=== PATIENT | female | born 1995 | race Two or more races ===

== ENCOUNTER 2023-07-25 10:46 | Outpatient (OUT) | payer OTHER, SELFPAY ==
--- NOTE | 2023-07-25 10:53 | ECG_ITS ---
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
[2023-07-25 11:53] LABS: Basophils Percent Auto 0.5 % (0.2-2.0); Eosinophils Absolute Auto 0.2 10^3/uL (0.0-0.7); Eosinophils Percent Auto 2.1 % (0.9-7.0); Hematocrit 39.1 % (36.0-48.0); Hemoglobin 12.8 g/dL (12.0-16.0); Immature Granulocytes Abs Auto 0.04 10^3/uL (0.00-0.03); Immature Granulocytes Pct Auto 0.5 % (0.0-0.5); Lymphocytes Absolute Auto 2.9 10^3/uL (1.2-3.8); Lymphocytes Percent Auto 37.9 % (20.5-60.0); Mean Corpuscular HGB Conc 32.7 g/dL (29.9-35.2); Mean Corpuscular Hemoglobin 30.3 pg (26.7-34.0); Mean Corpuscular Volume 92.7 fL (81.0-99.0); Monocytes Absolute Auto 0.6 10^3/uL (0.3-0.8); Monocytes Percent Auto 7.4 % (1.7-12.0); Neutrophils Percent Auto 51.6 % (43.0-75.0); Platelet Count 310 10^3/uL (150-450); Red Blood Count 4.22 10^6/uL (4.20-5.40); Red Cell Distribution Width 11.9 % (11.0-15.0); White Blood Count 7.7 10^3/uL (4.0-11.0)
[2023-07-25 12:47] LABS: BUN Creatinine Ratio 12.5; Calcium 9.2 mg/dL (8.5-10.1); Carbon Dioxide 28.8 mmol/L (21.0-32.0); Chloride 106 mmol/L (98-107); Estimated GFR (African America >60 (>=60); Estimated GFR (Non-African Ame >60 (>=60); Glucose 106 mg/dL (74-106); Potassium 3.8 mmol/L (3.5-5.1); Sodium 142 mmol/L (136-145)
== END 2023-07-25 10:47 | disposition home or self-care (01) ==
LOC: PST 10:48
PROVIDERS: Visit Provider Urology
DX: Z01.810 Encounter for preprocedural cardiovascular examination (principal); Z01.812 Encounter for preprocedural laboratory examination; N20.1 Calculus of ureter
CPT/HCPCS: 80048; 85025; 93005

== ENCOUNTER 2023-07-26 13:00 | Day surgery (SDC) | payer OTHER, SELFPAY ==
[2023-07-25 11:22] VITALS: BP 109/70; RESP 16; TEMP 36.2; O2SAT 97; BMI 36.8
[2023-07-26] VITALS (13 sets, daily range): BP systolic 106–125; BP diastolic 69–93; PULSE 70–117; RESP 11–20; TEMP 36.2; O2SAT 95–100; BMI 36.8
[2023-07-26] MEDS: SCOPOLAMINE 1 MG/3 DAYS TRANSDERM PATCH 1 PATCH TD (13:36)
[2023-07-26] MEDS: LACTATED RINGER'S SOLUTION 1,000 ML 50 ML IV ×2 (13:36→17:01)
[2023-07-26] MEDS: CEFAZOLIN SODIUM/DEXTROSE,ISO 2 GM/50 ML PIGGYBACK IV (15:43)
[2023-07-26] MEDS: MIDAZOLAM HCL 2 MG/2 ML VIAL IV (15:47)
[2023-07-26] MEDS: IOHEXOL 300 MG/ML - 50 ML BTL INJ (16:38)
--- NOTE | 2023-07-26 16:55 | PM.URSON ---
Urology Surgery Operative Note Operative Note Procedure Date: 07/26/23 Time Out Performed: yes Pre-op Diagnosis: Left proximal ureteral stone with flank pain Post-op Diagnosis: same as pre-op Procedures performed: Cystoscopy, left retrograde pyelogram, ureteroscopy with stone extraction, stent placement Anesthesia: General-LMA (Dr. Chan) Primary Surgeon: Dinah Vences Complications: none Estimated blood loss (mL): 0 Findings: Tight, inferiorly angled urethra. 1+ trabeculated bladder. Left URS with punctate 1 mm stone basket extracted from kidney after being pushed up from ureteroscope. Left RPG without hydronephrosis, filling defects, strictures or extravasation. Efflux of contrast from UO however delayed emptying of contrast from renal pelvis, therefore stent was placed for edema given pts severe pain on presentation. Specimens: none Drains: 4.9Fr x 22-32 cm JJ left ureteral stent on string Incision: none Indications for Procedures: 28 year old female recently diagnosed with a 2 mm left proximal ureteral stone and pain who failed medical expulsive therapy. After discussion of risks/benefits of management options, she elected to proceed with cystoscopy, left retrograde pyelogram, ureteroscopy with laser lithotripsy/stone extraction, possible ureteral stent placement under general anesthesia. Risks were discussed including but not limited to bleeding, pain, infection, damage to surrounding structures, inability to treat the stone/place a stent, and need for additional procedures. The patient understands the stent is not permanent and needs to be removed or exchanged within 3 months to prevent encrustation, infection, invasive procedures and/or permanent renal damage. Detailed description of Procedure: After informed consent was obtained, the patient was brought to the operating room and transferred onto the operating table in supine position. Sequential compression devices were placed on bilateral lower extremities. The patient received the appropriate dose of preoperative IV antibiotics and general anesthesia LMA was induced. They were positioned in modified dorsolithotomy with the appropriate pressure points padded, prepped, and draped in the usual sterile fashion for this procedure. An operative safety timeout was performed confirming the patient's identity, laterality and procedure, and all present agreed to proceed. I began by inserting a 22 [employer] rigid cystoscope with 30 degree lens into the patient's urethra and bladder with mild difficulty due to tight and angled urethra. There were no bladder tumors, lesions, stones or foreign bodies. Bilateral ureteral orifices were orthotopic and patent. I turned my attention to the left ureteral orifice and a Sensor wire was inserted into the ureter up to the renal pelvis confirmed on fluoroscopy. Next a flexible ureteroscope was inserted over the wire and advanced to the ureter under fluoroscopic guidance until the stone was reached. Stone ended up being pushed into the kidney. A renoscopy was performed noting a 1 mm stone in the right upper pole and no other stones. This was removed with a 1.8 tipless nitinol basket. Pull down ureteroscopy confirmed no ureteral stones remained. Contrast was injected for retrograde pyelogram with finding as above. Due to retained contrast in the renal pelvis and patient's severe pain with a 2 mm stone, decision was made to leave a stent, on a string per discussion with patient prior. The sensor wire was reinserted into the renal pelvis confirmed on fluoroscopy. A 4.9Fr x 22-32cm JJ variable length ureteral stent on a string was advanced over the wire, noting adequate curl in the renal pelvis and bladder on fluoroscopic and direct visualization. The bladder was drained and inspected one final time to ensure adequate position of stent and no undue trauma to the bladder was done. The cystoscope was removed. The string was secured to the left thigh with Tegaderm. The patient tolerated the procedure well without complication. The patient was awakened from anesthesia and sent to PACU in stable condition. Plan: Discharge home with stent pain medications. Remove stent by the string at home in 4-5 days. Obtain renal US in 6 wks to ensure no hydronephrosis. Follow up in 6 months with [facility] and renal US for stone surveillance per pt request. Other Provider present: No Post Operative care instructions: See discharge instructions Attending Doc Confirm Attending Attestation: Yes
[2023-07-26] MEDS: HYDROMORPHONE HCL 0.5 MG/0.5 ML SYRINGE IV (17:03)
== END 2023-07-26 18:05 | disposition home or self-care (01) ==
PROVIDERS: Visit Provider Urology
PROC: (CPT 918; principal; 2023-07-26 14:30)
DX: N20.1 Calculus of ureter (principal); I10 Essential (primary) hypertension; D64.9 Anemia, unspecified; R10.9 Unspecified abdominal pain; N32.89 Other specified disorders of bladder; J45.909 Unspecified asthma, uncomplicated; R31.21 Asymptomatic microscopic hematuria; Z87.440 Personal history of urinary (tract) infections; I34.0 Nonrheumatic mitral (valve) insufficiency; M06.9 Rheumatoid arthritis, unspecified; R35.0 Frequency of micturition; R35.1 Nocturia; N39.43 Post-void dribbling; N39.46 Mixed incontinence; Z90.710 Acquired absence of both cervix and uterus; Z90.49 Acquired absence of other specified parts of digestive tract; F17.290 Nicotine dependence, other tobacco product, uncomplicated
CPT/HCPCS: 52332; 52352; 36415; 74420; 84703; J0131; J0690; J1100; J1170; J2250; J2405; J2704; J3010; Q9967